=== PATIENT | male | born 1970 ===

== ENCOUNTER 2022-12-08 23:02 | Emergency (ER) | payer BC ==
[2022-12-08 23:10] VITALS: PULSE 74
[2022-12-08 23:51] LABS: ANION GAP 9.7 meq/L (7-15)
[2022-12-09] MEDS ORDERED: Lisinopril 5 MG Tab PO ONE (00:03)
[2022-12-09 00:17] VITALS: BP 134/99
== END 2022-12-09 00:30 | disposition home or self-care (01) ==
LOC: LL.ED 23:02
DX: H60.313 Diffuse otitis externa, bilateral (principal); I10 Essential (primary) hypertension; K21.9 Gastro-esophageal reflux disease without esophagitis; E66.9 Obesity, unspecified; Z68.36 Body mass index [BMI] 36.0-36.9, adult; Z79.899 Other long term (current) drug therapy
CPT/HCPCS: 36415; 80053; 83735; 85025; 99284; A9270